=== PATIENT | male | born 1960 | race African-American/Black ===

== ENCOUNTER 2022-09-08 09:50 | Outpatient (CLI) | payer OTHER, SELFPAY ==
--- NOTE | 2022-09-08 11:30 | NEURO_ITS ---
Impression: # Complains of numbness of hands. # Bilateral ulnar neuropathy, right more than left. # Needle/EMG exam not requested. # Clinical correlation recommended. Nerve Conduction Studies Anti Sensory Summary Table Stim Site NR Peak (ms) P-T Amp (?V) Site1 Site2 Delta-P (ms) Dist (cm) Bal (m/s) Left Median Anti Sensory (2-3nd Digit) Wrist 3.2 12.9 Wrist 2-3nd Digit 3.2 14.0 44 Wrist 3.1 41.3 Wrist 2-3nd Digit 3.2 14.0 44 Right Median Anti Sensory (2-3nd Digit) Wrist 4.3 16.6 Wrist 2-3nd Digit 4.3 14.0 33 Wrist 4.2 18.0 Wrist 2-3nd Digit 4.3 14.0 33 Left Radial Anti Sensory (Base 1st Digit) Wrist 2.1 25.5 Wrist Base 1st Digit 2.1 0.0 Right Radial Anti Sensory (Base 1st Digit) Wrist 2.8 10.5 Wrist Base 1st Digit 2.8 0.0 Left Ulnar Anti Sensory (5th Digit) Wrist 3.2 32.9 Wrist 5th Digit 3.2 14.0 44 Right Ulnar Anti Sensory (5th Digit) Wrist 2.5 11.6 Wrist 5th Digit 2.5 14.0 56 Motor Summary Table Stim Site NR Onset (ms) O-P Amp (mV) Site1 Site2 Delta-0 (ms) Dist (cm) Bal (m/s) Left Median Motor (Abd Poll Brev) Wrist 3.6 6.4 Elbow Wrist 5.8 32.0 55 Elbow 9.4 5.7 Right Median Motor (Abd Poll Brev) Wrist 4.0 4.2 Elbow Wrist 6.0 31.0 52 Elbow 10.0 5.5 Left Ulnar Motor (Abd Dig Minimi) Wrist 3.4 6.3 A Elbow Wrist 6.5 33.0 51 A Elbow 9.9 5.3 B Elbow Wrist 4.3 24.0 56 B Elbow 7.7 3.7 Right Ulnar Motor (Abd Dig Minimi) Wrist 2.7 6.4 A Elbow Wrist 6.8 31.0 46 A Elbow 9.5 4.9 B Elbow Wrist 4.0 23.0 58 B Elbow 6.7 4.5 F Wave Studies NR F-Lat (ms) L-R F-Lat (ms) Left Median (Mrkrs) (Abd Poll Brev) 33.34 0.31 Right Median (Mrkrs) (Abd Poll Brev) 33.03 0.31 Left Ulnar (Mrkrs) (Abd Dig Min) 33.64 1.78 Right Ulnar (Mrkrs) (Abd Dig Min) 31.86 1.78 MTDD
== END 2022-09-08 09:51 | disposition home or self-care (01) ==
PROVIDERS: PCP Internal Medicine; Visit Provider Internal Medicine
DX: G56.23 Lesion of ulnar nerve, bilateral upper limbs (principal)
CPT/HCPCS: 95911